=== PATIENT | male | born 1990 | race Caucasian/White ===

== ENCOUNTER 2021-01-12 10:13 | Outpatient (REF) | payer OTHER, SELFPAY ==
--- NOTE | ~2021-01-12 | XR_ITS ---
EXAMINATION: XR TIBIA AND FIBULA, RIGHT CLINICAL INFORMATION: Benign neoplasm of bone and articular cartilage. COMPARISON: None TECHNIQUE: AP and lateral views of the right tibia and fibula were obtained. FINDINGS: The bones and soft tissues are normal. No fracture. No osseous lesions. XR/XR tibia fibula RT 2V IMPRESSION: Unremarkable right tibia and fibula exam.
== END 2021-01-12 10:14 | disposition home or self-care (01) ==
LOC: HO.XRAY 10:13
PROVIDERS: PCP Internal Medicine; Visit Provider Internal Medicine
DX: D16.9 Benign neoplasm of bone and articular cartilage, unspecified (principal)
CPT/HCPCS: 73590

== ENCOUNTER 2021-03-13 08:05 | Outpatient (REF) | payer OTHER, SELFPAY ==
--- NOTE | ~2021-03-13 | XR_ITS ---
EXAMINATION: KNEE X-RAY CLINICAL INFORMATION: Right knee pain COMPARISON: Right lower leg x-ray January 2021 TECHNIQUE: Standing AP view of both knees and lateral and sunrise view of the right knee FINDINGS: Right knee: Bone alignment is normal. No fracture or dislocation is seen. The joint spaces are normal. There is no joint effusion. Standing AP view of the left kidney is normal. XR/XR knee standing BI IMPRESSION: Unremarkable exam.
--- NOTE | ~2021-03-13 | XR_ITS ---
EXAMINATION: KNEE X-RAY CLINICAL INFORMATION: Right knee pain COMPARISON: Right lower leg x-ray January 2021 TECHNIQUE: Standing AP view of both knees and lateral and sunrise view of the right knee FINDINGS: Right knee: Bone alignment is normal. No fracture or dislocation is seen. The joint spaces are normal. There is no joint effusion. Standing AP view of the left kidney is normal. XR/XR knee RT 2V IMPRESSION: Unremarkable exam.
[2021-03-13 09:25] LABS: Hematocrit 44.1 % (42-52); Hemoglobin 15.2 g/dl (14.0-18.0); Mean Corpuscular HGB Conc 34.5 g/dl (31.0-36.0); Mean Corpuscular Hemoglobin 28.8 pg (27.0-33.0); Mean Corpuscular Volume 83.5 fL (80-98); Mean Platelet Volume 9.1 fL (9.4-12.4); Platelet Count 294 X10*3/uL (160-400); Red Blood Count 5.28 X10*6/uL (4.60-5.80); Red Cell Distribution Width 12.2 % (11.0-16.0); White Blood Count 6.5 X10*3/uL (4.8-10.8)
[2021-03-13 09:58] LABS: Alanine Aminotransferase 10 U/L (0-40); Albumin Level 4.6 g/dL (3.5-5.0); Alkaline Phosphatase 43 U/L (39-117); Anion Gap 12 (12-20); Aspartate Amino Transferase 17 U/L (5-37); Bilirubin Direct 0.2 mg/dL (0.0-0.5); Bilirubin Total 0.5 mg/dL (0.0-1.0); Blood Urea Nitrogen 15 mg/dL (9-16); Calcium 9.6 mg/dL (8.4-10.2); Carbon Dioxide 26 mmol/L (22-29); Chloride 108 mmol/L (96-108); Cholesterol 130 mg/dL; Estimated Glomerular Filt Rate > 60; Glucose Random 90 mg/dL (60-115); HDL Cholesterol 32 mg/dL; LDL Cholesterol Calculated 70 mg/dl; Potassium 4.6 mmol/L (3.3-5.1); Sodium 141 mmol/L (135-145); Triglycerides 144 mg/dL
[2021-03-13 10:19] LABS: Thyroid Stimulating Hormone 0.92 uIU/mL (0.32-4.0)
== END 2021-03-13 08:06 | disposition home or self-care (01) ==
LOC: HO.HOSX 08:05
PROVIDERS: Absent Provider Internal Medicine; PCP Internal Medicine; Visit Provider Physician Assistant
DX: Z00.00 Encounter for general adult medical examination without abnormal findings (principal); M25.561 Pain in right knee; M25.562 Pain in left knee
CPT/HCPCS: 36415; 73560; 73565; 80048; 80061; 80076; 84443; 85027; 99202

== ENCOUNTER 2021-04-16 11:00 | Outpatient (RCR) | payer OTHER, SELFPAY ==
--- NOTE | 2021-03-30 12:52 | MHC.PT.EP ---
[facility] [place] Office [place] Office [place] Office [address] Mary Obregon [address] [phone] F: [phone] F: [phone] F: [phone] F: [phone] Physical Therapy Plan of Care Date of Evaluation: Date of Surgery: Diagnosis: RIGHT KNEE PATELLAR TENDONITIS Assessment: 30 YO MALE REF TO PT FOR Rt KNEE PAIN- PROGRESSIVE IN NATURE- Pt WORKS FULL-TIME AT [employer] W INCR SQUATTING/ ROTATION, BENDING- OBJECTIVE FINDINGS INCLUDE TIGHTNESS IN LEIGHTON HS/ HIP ITB; WEAKNESS IN CORE, CURRENTLY (-) INSTAB; DECR POSTURAL AWARENESS, (+) SCOLIOSIS/ POSTURAL DEFICITS, AND (+) Rt PFPS W INCR TISSUE TUG ON Rt TIBIAL TUBERCLE( NOT QUITE IZA JAMIA'S). FUNCTIONALLY, Pt HAS DECR NOLBERTO TO SQUATTING, BENDING, 1/2 KNEELING, STAIR MGMT- HE TENDS TO MOVE BRISKLY AND UTILIZES MOMENTUM VS MUSC STAB- Pt WOULD BENEFIT FROM PT TO ADDRESS THE ABOVE-> PATELLAR PAIN Frequency and Duration: The patient will be seen 2xwK X 4 WKS Short Term Goals: Pt'S RT KNEE PAIN REDUCED TO 2/10 W WORK TASKS IN 2 WKS Pt IMPROVE LEIGHTON HS, RT ITB FLEXIBILITY IN 2 WKS Pt DEMON PROPER POSTURE W 3:3 SIM WORK /ADL TASKS IN 2 WKS Out Of Town Collection Clerk Goals: Pt INDEP W [facility] AND SELF SX MGMT STRATEGIES IN 4 WKS Pt'S LEFT SCORE IMPROVED BY 5 POINTS (AT EVAL 69/80) IN 4 WKS Treatment Plan: Modalities to reduce pain, spasms and effusion. Manual therapy to restore motion and function. Therapeutic exercise to improve strength and flexibility. Neuromuscular re-education for posture and balance. Therapeutic activities to return to functional activities of daily living. Electronically signed by: Sheila Gregory,PT Please sign and return to therapist. Thank you for your referral.
--- NOTE | 2021-08-11 13:25 | MHC.PT.DC ---
[facility] [place] Office [place] Office [place] Office [address] Mary Obregon 140 [facility] [phone] F: [phone] F: [phone] F: [phone] F: [phone] Physical Therapy Discharge Report Diagnosis: RIGHT KNEE PATELLAR TENDONITIS Date of Surgery: Date of Evaluation: 03/30/21 Date of Discharge: 04/24/21 Treatments to Date: 5 Cancellations to Date: 0 No Shows to Date: 0 Discharge Status: Discharge Summary: Progressed well in PT and I with [facility]. We will d/c to [facility] at this time. Electronically signed by: Miles Long PT Please sign and return to therapist. Thank you for your referral.
== END 2021-08-11 13:25 | disposition home or self-care (01) ==
LOC: HO.PTCHIC 11:00
PROVIDERS: PCP Internal Medicine; Visit Provider Physician Assistant
DX: M76.51 Patellar tendinitis, right knee (principal)
CPT/HCPCS: 97110; 97140; 97161